=== PATIENT | female | born 1995 | race Caucasian/White ===

== ENCOUNTER 2020-05-14 02:25 | Outpatient (CLI) | payer MEDICAID, SELFPAY ==
--- NOTE | 2020-05-14 06:45 | DI.US_ITS ---
EXAM: US OB 1ST TRIMESTER CLINICAL HISTORY: threatened ,o20.0 TECHNIQUE: Ultrasound performed using standard protocol. COMPARISON: No exams were available for comparison FINDINGS: A gestational sac is seen within the uterus. A fetus is noted which shows no motion or cardiac activ ity, consistent with demise. The crown-rump length measurements correspond to 12 weeks 0 days which is 2 weeks less than expected based on clinical information. The ovaries appear normal. There is no evidence of free fluid. IMPRESSION: Nonviable intrauterine . DATA REPOSITORY:
== END 2020-05-14 02:26 ==
LOC: DI 02:25
PROVIDERS: Visit Provider Advanced Practice Midwife
DX: O02.1 Missed abortion (principal)
CPT/HCPCS: 76801

== ENCOUNTER 2020-05-14 11:05 | Outpatient (CLI) | payer MEDICAID, SELFPAY ==
[2020-05-14 11:34] LABS: HCT 36.4 % (36.0-46.0); HGB 12.1 g/dL (11.2-15.7); MCH 31.2 pg (27.0-33.0); MCHC 33.2 % (32.0-36.0); MCV 93.8 fL (80-95); MPV 9.7 fL (8.0-11.0); Platelet Count 377 10^3/uL (130-400); RBC 3.88 10^6/uL (3.93-5.22); RDW 12.8 % (11.7-14.6); RDW-SD 43.8 fL
[2020-05-14 12:11] LABS: HCG Quant, Pregnancy 14628 mIU/mL (1-3)
== END 2020-05-14 11:06 | disposition home or self-care (01) ==
PROVIDERS: Visit Provider Advanced Practice Midwife
DX: O03.9 Complete or unspecified spontaneous abortion without complication (principal)
CPT/HCPCS: 36415; 85027; 86850; 86900; 86901; 84702

== ENCOUNTER 2020-05-21 07:18 | Day surgery (SDC) | payer MEDICAID, SELFPAY ==
--- NOTE | 2020-05-20 09:25 | NUR.NOTE ---
Pre-op call attempted, rang three times and went straight to voicemail. Message left to be NPO after midnight, and may have water until 0400am the morning of the procedure. After that nothing by mouth. Her arrival time was stated for 07:15. It was also stated that she need to be wesaring a mask while here in the hospital, and she needed a ride home set up in place prior to arrival. Nursing Note:
[2020-05-21 07:47] VITALS: BP 120/80; PULSE 83; RESP 18; TEMP 36.5; O2SAT 100
[2020-05-21] MEDS: Lactated Ringers 1,000 ML 125 ML IV (08:07)
--- NOTE | 2020-05-21 10:00 | DI.US_ITS ---
EXAM: US PELVIS LIMITED CLINICAL HISTORY: D C with u/s guidance in OR. 2nd case of the am TECHNIQUE: Ultrasound of the pelvis was performed during intraoperative procedure. COMPARISON: US US OB 1ST TRIMESTER from 05/14/2020 FINDINGS: Ultrasound guidance was provided during gynecologic intrauterine procedure. IMPRESSION: DATA REPOSITORY:
[2020-05-21] MEDS: Bupivacaine 0.25% Pres-Free 30 ML VIAL (10:24)
--- NOTE | 2020-05-21 10:30 | POCSPONT_PTH ---
PATIENT: JEANNETTE HOFFMAN LOC: [facility] U#:[id number] AGE/SX: 24/F ROOM: RE05/21/[address]: Jody Mckeon : 1995 BED: DIS: 05/21/2020 SPEC #: [id number] RECD: 05/21/20 12:42 STATUS: JAYLYN REQ #: [id number] ANNETTA: 05/21/20 10:[address]: Jody Mckeon DEPT: Surgical Specimen RECD BY: Nuzhat Moss ENTERED: 05/21/20 12:46 SP TYPE: SNOW PECK DR: Unknown,Unknown Tissues: 1 - ,SPONTANEOUS CHROMOSOME ANALYSIS PROFILE Procedures: GROSS AND MICRO LEVEL 4 CHROMOSOME ANALYSIS 15-20 CELLS CHROMOSOME ANALYSIS TISSUE CULTURE Comments: [id number] (PATH SPEC IN SALINE) (CYTOGENETICS - [id number])
--- NOTE | 2020-05-21 10:36 | W.PM.DSUDISC ---
Discharge Plan Disposition Patient Disposition: HOME Condition: Good Discharge Details Reason For Visit: TO BE DONE IN THE OR Attending Provider: Jody Mckeon Primary Care Provider: Unknown,Unknown Home Meds and New Rx's Prescriptions: No Action albuterol 90 mcg/actuation aerosol 90 mcg inhalation DAILY RF: 0 nicotine 14 mg/24 hr patch 24 hour 1 patch transdermal DAILY Qty: 28 RF: 3 PrePlus 27 mg iron- 1 mg tablet 1 tab PO DAILY Qty: 90 RF: 3 ibuprofen 600 mg tablet 600 mg PO Q6H PRN (Reason: pain) Qty: 60 RF: 0 doxycycline hyclate 100 mg tablet 100 mg PO .COMPLEX Qty: 3 RF: 0 acetaminophen [Tylenol Extra Strength] 500 mg Tablet 250 mg PO Q6H PRNRF: 0 Discharge Instructions Additional Instructions: Dr Mckeon will call you in 2weeks with the results of the chromosome testing on your baby. You will have some bleeding like a period over the next 3 weeks. I will give you a lab slip to bring to [facility] in 2 weeks to check on you hormone level. It will slowly drop over the next few weeks. As we discussed, you should not attempt to become until we discuss the results of the chromosome testing and you have had one period. Stand Alone Forms: DSU Post Suction D+C Activity:: Activity as Tolerated Diet:: Normal Diet Discharge Orders Discharge Orders: Discharge Order (Routine); Ordered 05/21/20 Ordered By: Jody Mckeon DS: Diagnosis Discharge Diagnosis (1) Embryonic demise: Status: Acute (2) Hx of dilation and curettage: Status: Acute
[2020-05-21 10:40] VITALS: BP 123/80; PULSE 69; RESP 23; TEMP 36; O2SAT 100
[2020-05-21 10:45] VITALS: BP 123/80; PULSE 69; RESP 23; O2SAT 100
[2020-05-21 10:50] VITALS: BP 112/77; PULSE 79; O2SAT 100
--- NOTE | 2020-05-21 11:23 | W.PM.OP ---
Date of service: 05/21/20 Time of Service: 11:23 Operative Note Operative Note DATE OF PROCEDURE: 05/21/20 PRE-OP DIAGNOSIS: Embryonic demise at 12 weeks 2 days PROCEDURE: Suction evacuation of uterine contents with ultrasound guidance SURGEON: Jody Mckeon ALUMINUM SIDING MECHANIC: Angélica Phillips ANESTHESIA TYPE: Local By Surgeon (Paracervical block with quarter percent Marcaine) and MAC Refer to Anesthesia Record ESTIMATED BLOOD LOSS: 5 PATHOLOGY: other ([employer] for chromosome testing) COMPLICATIONS: None Patient was transported to: PACU Patient's condition: stable Indications: 24-year-old G3, P0 female with a documented embryonic demise around rump length measurements indicating approximately 12 weeks EGA. Patient was counseled and accepted recommendations to proceed with a suction evacuation of uterine contents. Findings: None viable frazier intrauterine . Procedure Description: Patient was just new operating room where she was placed in the supine position and monitored anesthesia care was administered without difficulty. She was placed in dorsal lithotomy position in yellowfin stirrups prepped and draped in the usual sterile fashion. Surgical timeout was performed. A bivalve speculum was placed in the vagina and the anterior cervix was infiltrated with quarter percent Marcaine without epinephrine. A paracervical block was performed using 5 cc of quarter percent Marcaine without epinephrine at the 4 and 8:00 cervical vaginal interface respectively. The anterior lip of the cervix was grasped with a single-tooth tenaculum and the the endocervical canal was dilated sequentially to allow for passage of a 10 mm curved suction cannula. Diagnostic imaging department was present and a transabdominal ultrasound was performed to allow visualization of the uterine cavity during the entire procedure. Suction evacuation of uterine contents was performed with complete emptying of the uterus confirmed by transabdominal ultrasound. At the completion of the procedure the tenaculum was removed from the anterior lip of the cervix and the tenaculum site at 1 o'clock position was suture-ligated to achieve hemostasis. Instruments were removed and the patient vagina and on bimanual exam the uterus was smaller, and firm. The patient was then placed in the dorsal supine position, awakened from anesthesia and transported to recovery area in stable condition. All sponge lap needle counts correct x2.
[2020-05-21 11:50] VITALS: BP 110/70; PULSE 74; RESP 16; TEMP 36.3; O2SAT 100
== END 2020-05-21 12:28 | disposition home or self-care (01) ==
PROVIDERS: Visit Provider Obstetrics & Gynecology Gynecology
PROC: (CPT 59841; principal; 2020-05-21 09:00)
DX: O03.4 Incomplete spontaneous abortion without complication (principal)
CPT/HCPCS: 59812; 36415; 76857; 86850; 86900; 86901; 88305; 88233; 88262; J2001; J2250; J3010